=== PATIENT | male | born 1955 | race Caucasian/White ===

== ENCOUNTER 2019-09-11 11:26 | Inpatient (IN) ==
[2019-09-11] MEDS ORDERED: Famotidine 20 MG/2 ML VIAL IVP ONE (12:15)
[2019-09-11] MEDS ORDERED: Ringers Solution, Lactated 1,000 ML IVC SCH ×2 (12:15→15:08)
[2019-09-11] MEDS ORDERED: Gabapentin 100 MG CAPSULE PO ONE (12:16)
[2019-09-11] MEDS ORDERED: CeFAZolin Syr 3,000MG/30 ML 3,000 MG/30 ML SYRINGE IVPB ONE (12:21)
[2019-09-11] MEDS ORDERED: *HR* FentaNYL (PF) 100 MCG/2 ML VIAL ONE (12:39)
[2019-09-11] MEDS ORDERED: *HR* Succinylcholine 200 MG/10 ML VIAL IVP ONE (12:39)
[2019-09-11] MEDS ORDERED: *HR* Propofol 200 MG/20 ML VIAL IVP ONE ×2 (12:39→14:03)
[2019-09-11] MEDS ORDERED: Lidocaine -MPF 2% 2 ML VIAL ONE (12:39)
[2019-09-11] MEDS ORDERED: Ondansetron 4 MG/2 ML VIAL ONE (12:39)
[2019-09-11] MEDS ORDERED: Naloxone 0.4 MG/ML INJ IVP PRN ×2 (12:40→15:08)
[2019-09-11] MEDS ORDERED: *HR* OxyCODONE Immed Rel 5 MG TABLET PO PRN ×2 (12:40→15:08)
[2019-09-11] MEDS ORDERED: *HR* HYDROmorphone PF 0.5 MG/0.5 ML SYRINGE IVP PRN (12:40)
[2019-09-11] MEDS ORDERED: Ondansetron 4 MG/2 ML VIAL IVP ONE (12:40)
[2019-09-11] MEDS ORDERED: *HR* FentaNYL (PF) 100 MCG/2 ML VIAL IVP PRN (12:40)
[2019-09-11] MEDS ORDERED: flumazeniL 0.5 MG/5 ML VIAL IVP PRN (12:40)
[2019-09-11] MEDS ORDERED: Albuterol 2.5 MG/3 ML NEBULIZER IH PRN (12:40)
[2019-09-11] MEDS ORDERED: *HR* Midazolam HCl 2 MG/2 ML VIAL ONE (12:41)
[2019-09-11] MEDS ORDERED: Lidocaine -MPF 4% 5 ML AMPUL ONE (12:42)
[2019-09-11] MEDS ORDERED: ROPIVACAINE/PF/NS 0.25% 1 EACH SYRINGE INTRAART ONE (12:47)
[2019-09-11] MEDS ORDERED: Ropivacaine/PF 0.5% 30 ML VIAL ONE (12:47)
[2019-09-11] MEDS ORDERED: Ethanol\\Acetic Acid\\Na Ace\\Ben 1,000 ML IRRIG.SOLN IR ONE (12:47)
[2019-09-11] MEDS ORDERED: Vancomycin 1,000 MG VIAL ONE (13:20)
[2019-09-11 15:06] LABS: Hematocrit 40.1 % (37.5-50.1); Hemoglobin 13.9 g/dL (12.9-16.9)
[2019-09-11] MEDS ORDERED: Ondansetron 4 MG/2 ML VIAL IVP PRN (15:08)
[2019-09-11] MEDS ORDERED: MOM Conc 10 ML UD.LIQ PO PRN (15:08)
[2019-09-11] MEDS ORDERED: D5% in Water 1,000 ML IVC PRN (15:08)
[2019-09-11] MEDS ORDERED: *HR* Dextrose 50 % in Water (Vial) 50 ML VIAL IVP PRN (15:08)
[2019-09-11] MEDS ORDERED: Dextrose Gel 15 GM/37.5 ML TUBE PO PRN ×2 (15:08)
[2019-09-11] MEDS ORDERED: NON-FORMULARY MEDICATION 1 EACH EACH (Ezetimibe [Zetia] 10 MG) PO SCH (15:08)
[2019-09-11] MEDS ORDERED: Sennosides 8.6 MG TABLET PO PRN (15:08)
[2019-09-11] MEDS: CeFAZolin 2 GM/120 ML BAG IVPB SCH ×2 (16:05→23:57)
[2019-09-11] MEDS ORDERED: Insulin LISPRO 300 UNITS/3 ML VIAL SQ SCH ×2 (16:30→21:00)
[2019-09-11] MEDS: *HR* Enoxaparin 30 MG/0.3 ML SYRINGE SQ SCH (17:46)
[2019-09-11] MEDS ORDERED: *HR* Enoxaparin 30 MG/0.3 ML SYRINGE SQ SCH (18:00)
[2019-09-12 03:46] LABS: Hematocrit 40.9 % (37.5-50.1); Hemoglobin 13.7 g/dL (12.9-16.9)
[2019-09-12 03:59] LABS: BUN/Creatinine Ratio 20 (6-26); Blood Urea Nitrogen 17 mg/dL (8-23); Calcium 9.4 mg/dL (8.6-10.3); Carbon Dioxide 28 mEq/L (23-29); Chloride 98 mEq/L (98-107); Glucose 194 mg/dL (70-105); Osmolality,Calculated 283 (280-300); Sodium 133 mEq/L (136-145); eGFR For African Americans > 60 (> 60); eGFR For Non-African Americans > 60 (> 60)
[2019-09-12] MEDS: *HR* OxyCODONE/APAP 5/325 TABLET PO PRN ×2 (05:43→11:25)
[2019-09-12] MEDS: *HR* Enoxaparin 30 MG/0.3 ML SYRINGE SQ SCH (05:44)
[2019-09-12 06:39] VITALS: BP 130/89
[2019-09-12] MEDS ORDERED: amLODIPine 5 MG TABLET PO SCH (09:00)
[2019-09-12] MEDS ORDERED: lisinopriL 20 MG TABLET PO SCH (09:00)
[2019-09-12] MEDS ORDERED: hydroCHLOROthiazide 25 MG TABLET PO SCH (09:00)
[2019-09-12 09:07] LABS: Estimated Average Glucose 120 mg/dl; Hemoglobin A1C 5.8 %
== END 2019-09-12 11:37 | disposition home health service (06) | DRG 483 ==
LOC: SAMDAY 11:26 → 3NENU 14:52
PROVIDERS: ADMIT Orthopaedic Surgery; ATTEND Orthopaedic Surgery